=== PATIENT | female | born 1965 | race Caucasian/White ===

== ENCOUNTER → 2016-03-18 | Outpatient (CLI) | payer OTHER ==
--- NOTE | 2016-03-19 11:19 | ECHOF ---
Referral Reason:heart murmur R01.1 MEASUREMENTS -------- HEIGHT: 162.6 cm WEIGHT: 61.2 kg BP: IVSd: 1.1 cm (0.6 - 1.1) LVIDd: 4.7 cm (3.9 - 5.3) LVPWd: 0.9 cm (0.6 - 1.1) IVSs: 1.4 cm LVIDs: 2.6 cm LVPWs: 1.5 cm Ao Diam: 2.5 cm (2.0 - 3.7) AV Cusp: 1.8 cm (1.5 - 2.6) LA Diam: 2.3 cm (2.7 - 3.8) MV EXCURSION: 10.998 mm (> 18.000) MV EF SLOPE: 103 mm/s (70 - 150) EPSS: 0.6 cm MV E Avery: 1.15 m/s MV DecT: 166 ms MV A Avery: 1.01 m/s MV E/A Ratio: 1.13 RAP: 5.00 mmHg RVSP: 33.21 mmHg FINDINGS -------- Sinus rhythm. This was a technically good study. Left ventricular wall thickness is normal. Overall left ventricular systolic function is normal with, an EF between 55 - 60 %. The right ventricle is normal in size and function. The left atrium is normal in size. The right atrium is normal in size. The aortic valve is trileaflet, and appears structurally normal. No aortic stenosis or regurgitation. There is trace mitral regurgitation. Trace tricuspid regurgitation present. The right ventricular systolic pressure, as measured by Doppler, is 33.21mmHg. Pulmonic valve appears structurally normal. The aortic root, ascending aorta and aortic arch are normal. The pericardium is normal. CONCLUSIONS -------- 1. Sinus rhythm. 2. Trace tricuspid regurgitation present. 3. The right ventricular systolic pressure, as measured by Doppler, is 33.21mmHg. 4. Pulmonic valve appears structurally normal. 5. The aortic root, ascending aorta and aortic arch are normal. 6. The pericardium is normal. 7. This was a technically good study. 8. Left ventricular wall thickness is normal. 9. Overall left ventricular systolic function is normal with, an EF between 55 - 60 %. 10. The right ventricle is normal in size and function. 11. The left atrium is normal in size. 12. The right atrium is normal in size. 13. The aortic valve is trileaflet, and appears structurally normal. No aortic stenosis or regurgitation. 14. There is trace mitral regurgitation. [employer] WORKER: Mone Ordonez RDCS
== END | disposition home or self-care (01) ==
LOC: RADECHMAIN 14:41
PROVIDERS: ATTEND Family Medicine
DX: R01.1 Cardiac murmur, unspecified (principal)
CPT/HCPCS: 93306

== ENCOUNTER 2017-02-04 09:29 | Day surgery (SDC) | payer OTHER ==
[2017-02-03 08:27] VITALS: BMI 22.3
[~2017-02-04 09:29] MED LIST: DEXAMETHASONE SOD PHOSPHATE 10 MG/ML 1 ML VIAL IV ONE; HYDROmorphone 0.5 MG/0.5 ML SYRINGE IVP PRN; LACTATED RINGERS 1,000 ML IV SCH; LIDOCAINE 1% 20 ML VIAL (10MG/ML) FOR IV START INTRADERMA PRN; MIDAZOLAM 2 MG/2 ML VIAL IV PRN; ONDANSETRON 4 MG/2 ML VIAL IVP ONE; SCOPOLAMINE 1.5MG/72HR PATCH TRANSDERM ONE; TETRACAINE 0.5% OPHTH (PF) DROPS 4 ML BTL OP ONE; TIMOLOL 0.5% OPHTH SOLN (PF) 0.2 ML DROPERETTE OP ONE
[2017-02-04] MEDS: CYCLOPENTOLATE 1% OPHTH SOLN 2 ML BTL OP ONE ×3 (10:44→11:02)
[2017-02-04 10:46] VITALS: RESP 18; TEMP 97.8
[2017-02-04] MEDS: PHENYLEPHRINE 2.5% OPHTH DRP 2ML OP NR ×3 (10:48→11:06)
[2017-02-04] MEDS ORDERED: fentaNYL (PF) 50 MCG/ML 2 ML AMP ONE (11:38)
[2017-02-04] MEDS ORDERED: MIDAZOLAM 2 MG/2 ML VIAL ONE (11:38)
[2017-02-04] MEDS ORDERED: BALANCED SALT IRRIG SOLN COMB2 15 ML IRRIG.SOLN IRRIGATION ONE (11:42)
[2017-02-04] MEDS ORDERED: LIDOCAINE 1% (PF) 10MG/ML VIAL INTRAARTIC ONE (11:42)
[2017-02-04] MEDS: MOXIFLOXACIN HCL 0.5% DROPS 3 ML BTL OP ONE ×2 (11:42→11:47)
[2017-02-04] MEDS ORDERED: EPINEPHrine (PF) 0.3 ML in BALANCED SALT IRRIG SOLN COMB2 500 ML IRRIGATION ONE (11:47)
[2017-02-04] MEDS ORDERED: HYALURONATE SODIUM INTRAOCULAR 1 EACH SYRINGE (12MG/ML) INTRAOCULA ONE (11:52)
[2017-02-04] MEDS ORDERED: FLUORESCEIN STRIPS 1 MG STRIP RIGHT EYE ONE (12:10)
--- NOTE | 2017-02-04 12:16 | P.OP ---
Date of Procedure: 02/04/17 Preoperative Diagnosis: pseudophakic lens dislocation Postoperative Diagnosis: same Procedure(s) Performed: IOL exchange Implants: PCB00 33.00 Anesthesia: MAC Surgeon: Carlos Ochoa Estimated Blood Loss (ml): 0 Pathology: none sent Condition: stable Disposition: same day Indications for Procedure: profound myopia/anisemetropia Operative Findings: No complications
[2017-02-04 12:41] VITALS: BP 113/66; PULSE 45
--- NOTE | 2017-02-05 06:11 | OP ---
OPERATIVE REPORT DATE OF SURGERY: February 04, 2017. PROCEDURE: Intra-ocular lens exchange of the right eye. PREOPERATIVE DIAGNOSES: Malpositioned intra-ocular lens, visual discomfort, and primary open-angle glaucoma mild stage. POSTOPERATIVE DIAGNOSES: Malpositioned intra-ocular lens, visual discomfort, and primary open-angle glaucoma mild stage. SURGEONS: Dr. Carlos Ochoa. ANESTHESIA: Topical. ESTIMATED BLOOD LOSS: None. SPECIMEN: Taken none. NARRATIVE: After obtaining the appropriate consent, the patient was brought to the operating room. There she was placed under cardiac monitoring and prepped and draped in the usual sterile manner. Approximately 1 month prior to today's surgical procedure, the patient underwent cataract and uncomplicated cataract extraction, eye stent implantation and implantation of a crystal lens. Apparently due to the size of this patient's eye, which was only 19.11 mm, the intra-ocular lens did not maintain its proper confirmation within the capsular bag of the eye and created a situation where she was roughly 3/4 diopters myopic. Additionally because the lens was not in the proper confirmation it would not have led to any ability for accommodation in the end even undergoing refractive surgery. Therefore, in an attempt to try to reposition the lens, the patient was brought to surgery, possibly expecting to exchange the lens if the current lens would not maintain proper confirmation in the eye. At the 11 o'clock position, identifying the original paracentesis, this opening was opened easily using a 1.1 mm stab blade. 1% lidocaine MPF 50 50 mix with balanced salt solution was injected into the anterior chamber. This was followed by an attempt using a Sinskey hook to probe pulse the optic of the intra-ocular lens deeper within the bag of this eye. However, every time the pressure was released, the lens reverted from its appropriate confirmation to an inverted confirmation. There was no evidence of any (Z) confirmation to this lens. However, at this point being frustrated in an attempt to even make this lens behave, it was decided best to go ahead and remove and resort to a standard intra-ocular lens. Therefore, viscoelastic was then instilled into the anterior chamber and at the 9 o'clock position, a 2.5 mm keratome was used to carefully open the existing temporal incision which had not well healed at this point. The intra- ocular lens was easily disinserted from the capsular bag using additional viscoelastic and manipulation using a Sinskey hook. Both haptics were brought into the anterior chamber and using a cool and Makool lens removal system, the lens was and divided in half and brought out through the temporal incision in 2 parts. Once this was accomplished, an JOVAN PCB 0 0 33.0 diopter posterior chamber intraocular lens was then inserted back into the capsular bag without difficulty. The remaining viscoelastic was then removed from in and around the intra-ocular lens in the capsular bag. The eye was brought to normal intraocular pressure through the paracentesis port and watertight integrity was ensured using ReSure tissue glue. Confirmation of the water tight integrity after placement of the glue on the incisions was confirmed using a fluorescein strip. The patient then received 2 drops of 0.5% timolol followed by 2 drops of moxifloxacin and she was lightly patched and shielded in the usual manner. There were no complications from the procedure. She tolerated the procedure well and was returned to outpatient recovery in good condition. MMTALISHA / VIRGILN: [id number] /
== END 2017-02-04 13:06 | disposition home or self-care (01) ==
LOC: OR 09:29
PROVIDERS: ATTEND Ophthalmology
DX: T85.22XA Displacement of intraocular lens, initial encounter (principal); H40.1111 Primary open-angle glaucoma, right eye, mild stage; H40.1122 Primary open-angle glaucoma, left eye, moderate stage; H40.52X2 Glaucoma secondary to other eye disorders, left eye, moderate stage; H40.033 Anatomical narrow angle, bilateral; H52.4 Presbyopia; H00.026 Hordeolum internum left eye, unspecified eyelid; H00.023 Hordeolum internum right eye, unspecified eyelid; H25.12 Age-related nuclear cataract, left eye; I10 Essential (primary) hypertension; E07.9 Disorder of thyroid, unspecified; Z79.899 Other long term (current) drug therapy; Y77.2 Prosthetic and other implants, materials and accessory ophthalmic devices associated with adverse incidents
CPT/HCPCS: 81025; 66986; C1780; J2250; J1100; J2405; J0171; J3010; J2001

== ENCOUNTER 2017-12-02 09:37 | Day surgery (SDC) | payer BC, OTHER ==
[2017-11-30 08:22] VITALS: BMI 22.3
[~2017-12-02 09:37] MED LIST changes: -DEXAMETHASONE SOD PHOSPHATE 10 MG/ML 1 ML VIAL IV ONE; -HYDROmorphone 0.5 MG/0.5 ML SYRINGE IVP PRN; -LACTATED RINGERS 1,000 ML IV SCH; -LIDOCAINE 1% 20 ML VIAL (10MG/ML) FOR IV START INTRADERMA PRN; -MIDAZOLAM 2 MG/2 ML VIAL IV PRN; +MOXIFLOXACIN HCL 0.5% DROPS 3 ML BTL OP ONE; -ONDANSETRON 4 MG/2 ML VIAL IVP ONE; -SCOPOLAMINE 1.5MG/72HR PATCH TRANSDERM ONE; +TIMOLOL 0.5% OPHTH DROPS 5 ML BTL OP ONE; -TIMOLOL 0.5% OPHTH SOLN (PF) 0.2 ML DROPERETTE OP ONE
[2017-12-02] MEDS: CYCLOPENTOLATE 1% OPHTH SOLN 2 ML BTL OP ONE ×3 (11:35→11:55)
[2017-12-02] MEDS: PHENYLEPHRINE 2.5% OPHTH DRP 2ML OP NR ×3 (11:39→11:59)
[2017-12-02 11:41] VITALS: TEMP 97.8
[2017-12-02] MEDS ORDERED: LIDOCAINE 1% 20 ML VIAL (10MG/ML) FOR IV START INTRADERMA ONE (11:54)
[2017-12-02] MEDS ORDERED: LACTATED RINGERS 1,000 ML IV ONE (11:54)
[2017-12-02] MEDS ORDERED: BALANCED SALT IRRIG SOLN COMB2 15 ML IRRIG.SOLN IRRIGATION ONE (12:11)
[2017-12-02] MEDS ORDERED: LIDOCAINE 1% (PF) 10MG/ML VIAL SQ ONE (12:12)
[2017-12-02] MEDS ORDERED: DUOVISC KIT (GREEN BOX) INTRAOCULA ONE (12:12)
[2017-12-02] MEDS ORDERED: fentaNYL (PF) 50 MCG/ML 2 ML AMP ONE (12:13)
[2017-12-02] MEDS ORDERED: EPINEPHrine (PF) 0.3 ML in BALANCED SALT IRRIG SOLN COMB2 500 ML IRRIGATION ONE (12:16)
--- NOTE | 2017-12-02 12:44 | P.OP ---
Date of Procedure: 12/02/17 Preoperative Diagnosis: NS & CS & POAG Postoperative Diagnosis: same Procedure(s) Performed: PIOL, OS & iStent imlpant Implants: PCB00 31.50 GTS 100L Anesthesia: MAC Surgeon: Carlos Ochoa Estimated Blood Loss (ml): 0 Pathology: none sent Condition: stable Disposition: same day Indications for Procedure: blurry vision and POAG moderate Operative Findings: No complications
[2017-12-02 12:50] VITALS: PULSE 55; RESP 18
[2017-12-02 13:02] VITALS: BP 147/76
--- NOTE | 2017-12-02 18:33 | OP ---
OPERATIVE REPORT DATE OF SURGERY: December 02, 2017. PROCEDURE PERFORMED: Phacoemulsification of cataract and intraocular lens implant of the left eye with eye stent implantation. PREOPERATIVE DIAGNOSES: Nuclear sclerosis, cortical sclerosis and primary open-angle glaucoma, moderate stage. POSTOPERATIVE DIAGNOSES: Nuclear sclerosis, cortical sclerosis and primary open-angle glaucoma, moderate stage. SURGEON: Dr. Carlos Ochoa. ANESTHESIA: Topical. ESTIMATED BLOOD LOSS: None. SPECIMEN: Taken none. NARRATIVE: After obtaining the appropriate consent, the patient was brought to the operating room. There she was placed under cardiac monitoring, prepped and draped in the usual sterile manner. She was approached from her left temporal side and at the 5 o'clock position, an MVR blade was used to create a paracentesis port. Through this opening 1% Xylocaine MPF 50 50 mix with balanced salt solution was injected into the anterior chamber. This was followed by stabilization of the anterior chamber with Viscoat. A small amount of the Viscoat material was also placed on the patient's cornea. At the 3 o'clock position, a 2.5 mm keratome was used to create a self-sealing corneal flap incision in a Langerman's fashion. The patient was then asked to rotate her head approximately 45 degrees to her right and maintaining gaze in that general direction. A gonio prism was placed on the patient's cornea and the trabecular meshwork was easily identified. A Glaukos TTS 100L eye stent was then placed across the anterior chamber and the stent was imbedded within the nasal trabecular meshwork without difficulty. A small amount of blood as expected refluxed through the opening of the implant. The patient was then returned to the normal supine position and a cystotome was introduced to begin a continuous tear capsulorrhexis which was completed using the Utrata forceps. Hydrodissection and hydrodelineation of the lens was accomplished with balanced salt solution. Phacoemulsification of the lens utilizing phaco chop was accomplished in 6/10 of 1 second at 8 percent power. Once the lens was removed, a small amount of the Xylocaine MPF was again instilled into the anterior chamber. This was followed by removal of the remaining cortex under irrigation and aspiration along with careful polishing of the posterior capsule in capsule vacuum mode. A small amount of Provisc was then used to stabilize the capsular bag and an JOVAN PCB00 31.5 diopter posterior chamber intraocular lens was then placed into the capsular bag without difficulty. The remaining viscoelastic was removed from in and around the intra-ocular lens as well as the anterior chamber. The eye was then brought to normal intraocular pressures through the paracentesis port with balanced salt solution. The eye was confirmed watertight. She then received 2 drops of 0.5% timolol followed by 2 drops of moxifloxacin, was then lightly patched and shielded in the usual manner. There were no complications from the procedure. She tolerated the procedure well, was returned to outpatient recovery in good condition. JUAN C / VIRGILN: [id number] /
== END 2017-12-02 13:16 | disposition home or self-care (01) ==
LOC: OR 09:37
PROVIDERS: ATTEND Ophthalmology
DX: H25.12 Age-related nuclear cataract, left eye (principal); H40.1122 Primary open-angle glaucoma, left eye, moderate stage; H00.026 Hordeolum internum left eye, unspecified eyelid; H40.1111 Primary open-angle glaucoma, right eye, mild stage; H40.033 Anatomical narrow angle, bilateral; H40.52X2 Glaucoma secondary to other eye disorders, left eye, moderate stage; H00.023 Hordeolum internum right eye, unspecified eyelid; H52.4 Presbyopia; Z96.1 Presence of intraocular lens; I10 Essential (primary) hypertension; E07.9 Disorder of thyroid, unspecified; Z79.890 Hormone replacement therapy; Z79.899 Other long term (current) drug therapy
CPT/HCPCS: 66984; 66183; 81025; C1780; C1783; J0171; J3010; J2001

== ENCOUNTER → 2018-03-05 | Outpatient (CLI) | payer BC ==
--- NOTE | 2018-03-05 10:05 | US ---
EXAMINATION TYPE: US liver DATE OF EXAM: 03/05/2018 COMPARISON: NONE CLINICAL HISTORY: R10.811 RUQ Abdominal Tenderness. abd tenderness when doctor pressed in RUQ EXAM MEASUREMENTS: Liver Length: 14.6 cm Gallbladder Wall: 0.2 cm CBD: 0.5 cm Right Kidney: 9.1 x 4.1 x 4.2 cm Pancreas: wnl Liver: wnl Gallbladder: wnl Evidence for sonographic Mallory's sign: no CBD: wnl Right Kidney: wnl IMPRESSION: 1. No suspicious ultrasound abnormality right upper quadrant ultrasound
== END | disposition home or self-care (01) ==
LOC: RADUSWWP 06:55
PROVIDERS: ATTEND Family Medicine
DX: R10.811 Right upper quadrant abdominal tenderness (principal)
CPT/HCPCS: 76705

== ENCOUNTER 2019-09-28 06:48 | Day surgery (SDC) | payer OTHER ==
[2019-09-26 14:37] VITALS: BMI 25.2
[~2019-09-28 06:48] MED LIST changes: +ATROPINE OPHTH SOLN 1% 5ML BTL OPHTHALMIC ONE; +LACTATED RINGERS 1,000 ML IV SCH; -TETRACAINE 0.5% OPHTH (PF) DROPS 4 ML BTL OP ONE
[2019-09-28] MEDS: PILOCARPINE 2% OPHTH DROPS 15 ML BTL OP ONE ×3 (07:38→07:47)
[2019-09-28 07:40] VITALS: TEMP 97.9
[2019-09-28] MEDS: GLYCERIN OPHTHALMIC ONE ×2 (07:49→07:58)
[2019-09-28] MEDS: TOBRA-DEXAMET 0.3-0.1% OPHTH DROPS 2.5 ML BTL OPHTHALMIC NR ×2 (08:04→08:07)
[2019-09-28] MEDS ORDERED: MIDAZOLAM 2 MG/2 ML VIAL ONE (08:14)
[2019-09-28] MEDS ORDERED: fentaNYL (PF) 50 MCG/ML 2 ML AMP ONE (08:14)
[2019-09-28] MEDS ORDERED: BALANCED SALT IRRIG SOLN COMB2 15 ML IRRIG.SOLN INTRAOCULA ONE (08:58)
[2019-09-28] MEDS ORDERED: TRYPAN BLUE 0.06% SYRINGE 0.5 ML SYRINGE INTRAOCULA ONE (08:58)
[2019-09-28] MEDS ORDERED: HYALURONATE SODIUM INTRAOCULAR 1 EACH SYRINGE (12MG/ML) INTRAOCULA ONE (08:59)
[2019-09-28] MEDS ORDERED: LIDOCAINE 1% (PF) 10 MG/ML (30 ML SDV) SQ ONE (09:00)
[2019-09-28] MEDS ORDERED: BALANCED SALT IRRIG SOLN COMB2 500 ML INTRAOCULA ONE (09:03)
[2019-09-28] MEDS ORDERED: BALANCED SALT IRRIG SOLN COMB2 500 ML IRRIGATION ONE (09:03)
--- NOTE | 2019-09-28 11:18 | P.OP ---
Date of Procedure: 09/28/19 Preoperative Diagnosis: PBK Postoperative Diagnosis: same Procedure(s) Performed: DMEK Implants: none Anesthesia: MAC Surgeon: Carlos Ochoa Estimated Blood Loss (ml): 0 Pathology: none sent Condition: stable Disposition: same day Indications for Procedure: persistent corneal edema Operative Findings: no complications
[2019-09-28 11:31] VITALS: RESP 16
[2019-09-28 12:47] VITALS: BP 147/85
[2019-09-28 12:48] VITALS: PULSE 46
--- NOTE | 2019-09-29 03:09 | OP ---
OPERATIVE REPORT DATE OF SURGERY: 09/28/2019. PROCEDURE: Descemet's membrane endothelial keratoplasty of the right eye with superficial epithelial debridement of the cornea. PREOPERATIVE DIAGNOSIS: Pseudophakic bullous keratopathy. POSTOPERATIVE DIAGNOSES: Pseudophakic bullous keratopathy. SURGEON: Dr. Carlos Ochoa. ANESTHESIA: MAC. ESTIMATED BLOOD LOSS: None. SPECIMEN TAKEN: None. NARRATIVE: After obtaining the appropriate consent, the patient was brought to the operating room. She was placed under cardiac monitoring, prepped and draped in the usual sterile manner. She was approached from her right temporal side and at the axes of 45, 135, 225 and 315, an MVR blade was used to create a paracentesis port. Through this opening 1% Xylocaine MPF 50:50 mix with balanced salt solution was injected into the anterior chamber. This was followed by Trypan blue which was left in the anterior chamber for 3 minutes. This was then irrigated away and replaced with Amvisc. At the 9 o'clock position, a 2.5 mm keratome was used to create a self-sealing corneal flap incision. The wound size was confirmed adequate for a Mckeon tube. Through the paracenteses incisions, a Sandy hook was used to score the endothelium at 8 mm. This was confirmed using an 8 mm trephination blade. Once the perimeter was scored then using a Descemet's membrane stripping tool, the entire central portion of the failed endothelium was removed in one piece. The viscoelastic was then removed under irrigation and aspiration to ensure no remaining viscoelastic was in the anterior chamber. Attention was then directed to the preparation of the donor Descemet's tissue. This tissue was identified as [id number]. This was already prepared and placed in a Mckeon tube for insertion. A syringe with balanced salt solution was attached to the open end. The tip which had been capped was opened and the tissue was brought to the patient's eye. The donor tissue was injected into the anterior chamber and a 10-0 nylon was used to secure the temporal incision. The donor tissue was then manipulated through various methods of tapping on the patient's cornea to orient the tissue into the proper anterior-posterior direction and centrally within the patient's eye. There were some difficulties appreciated during the manipulations in that the donor tissue tended to not respond to the normal fluid waves and often remained a flattened taco-like shape while in the eye. On a fortuitous move, the tissue laid flat with the stromal side in the proper orientation. At this point, a small air bubble was placed beneath the tissue and this was buoyed against the underside of the patient's cornea. Once placement was confirmed to be reasonable, sulfur hexafluoride SF6 was injected into the anterior chamber and the eye was brought to approximately 35 mmHg. This air bubble remained in the eye for approximately 25 minutes. During this period of time, a corneal debridement had to take place due to the previous bullous changes that were appreciated and which were consistently making the positioning of the donor tissue more difficult. The epithelium easily lifted with simply a dry Weck-Kimberly sponge and a #4 Jeweler's was used to remove the remaining epithelial debris. When sufficient time had passed, a portion of the SF6 was removed from the anterior chamber and replaced with balanced salt solution and at the time of discharge from the operating room, the amount of gas in the anterior chamber was approximately 40%. The patient received 2 drops of moxifloxacin, 2 drops of 0.5% timolol and the eye was protected with a Jackson shield, and she was transported to the recovery area where she remained in the supine position for an additional hour. After that period of time had passed, the patient was asked to sit upright and examined at the slit lamp. The corneal tissue remained in its proper orientation against the patient's own stroma and 2 drops of 1% atropine were applied to the patient's eye. The protective shield was then placed over the patient's eye and she was discharged from the postoperative area in no acute distress. MMBHAVNAL / VIRGILN: [id number] / DAVID
[2019-09-29] MEDS ORDERED: TETRACAINE 0.5% OPHTH (PF) DROPS 4 ML BTL OP ONE (05:00)
== END 2019-09-28 13:44 | disposition home or self-care (01) ==
LOC: OR 06:48
PROVIDERS: ATTEND Ophthalmology
DX: H59.0 Disorders of the eye following cataract surgery (principal); H18.51 Endothelial corneal dystrophy; H40.1122 Primary open-angle glaucoma, left eye, moderate stage; H40.1111 Primary open-angle glaucoma, right eye, mild stage; H00.026 Hordeolum internum left eye, unspecified eyelid; H52.4 Presbyopia; M35.01 Sjogren syndrome with keratoconjunctivitis; I10 Essential (primary) hypertension; E07.9 Disorder of thyroid, unspecified; Z80.0 Family history of malignant neoplasm of digestive organs; Z83.3 Family history of diabetes mellitus; Z82.49 Family history of ischemic heart disease and other diseases of the circulatory system; Z82.3 Family history of stroke; Z84.1 Family history of disorders of kidney and ureter; Z98.41 Cataract extraction status, right eye; Z98.42 Cataract extraction status, left eye; Z98.51 Tubal ligation status; E78.5 Hyperlipidemia, unspecified; Z79.890 Hormone replacement therapy; Z79.899 Other long term (current) drug therapy
CPT/HCPCS: 87070; 87205; 87075; 65756; V2785; J2250; J2001; J3010

== ENCOUNTER → 2020-12-05 | Outpatient (CLI) | payer OTHER ==
--- NOTE | 2020-12-05 15:56 | BD ---
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 History of Fracture in Adulthood: YES Secondary Osteoporosis: 1. Type 1 Diabetes: NO 2. Hyperthyroidism: NO 3. Menopause before 45: NO 4. Malnutrition: NO 5. Chronic liver disease: NO Rheumatoid Arthritis: NO Current Tobacco Use: NO RISK FACTORS HISTORY OF: Surgery to Spine/Hip(right/left)/Wrist (right/left): ASHLI HIP REPLACEMNT When: 2019 Family History of Osteoporosis: NO Active: YES Diet low in dairy products/other sources of calcium: NO Postmenopausal woman: AGE 53 Take estrogen and/or progesterone medications: NO Lost more than 2 inches in height since high school: NO MEDICATIONS: Thyroid Medications: YES Which medication: SYNTHROID How Lon-8 YEARS Additional Medications: SYNTHROID,ATORVASTATIN, LISINOPRIL Additional History: EXAM MEASUREMENTS: Bone mineral densitometry was performed using the [employer] System. Bone mineral density as measured about the Lumbar spine is: ----- L1-L4(G/cm2): 1.162 T Score Values are as follows: ----- L2: -0.2 ----- L3: -0.5 ----- L4: -1.3 ----- L1-L4: -0.2 BASELINE Bone mineral density about the L Wrist (g/cm2): 0.649 T Score values are as follows: -----Dist. R+U: -0.9 -----Prox. R+U: 0.1 -----Radius total: -0.4 BASELINE IMPRESSION: No evidence for osteoporosis or osteopenia. NOTE: T-SCORE=SD OF THE YOUNG ADULT MEAN.
--- NOTE | 2020-12-10 10:11 | MM ---
Reason for exam: screening (asymptomatic). Last mammogram was performed 4 years and 9 months ago. Physical Findings: A clinical breast exam by your physician is recommended on an annual basis and results should be correlated with mammographic findings. MG 3D Screening Mammo W/Cad Bilateral CC and MLO view(s) were taken. Prior study comparison: February 22, 2016, left breast MG diagnostic mammo LT w CAD. The breast tissue is heterogeneously dense. This may lower the sensitivity of mammography. Benign vascular calcifications. No significant changes when compared with prior studies. ASSESSMENT: Benign, BI-RAD 2 RECOMMENDATION: Routine screening mammogram of both breasts in 1 year.
== END | disposition home or self-care (01) ==
LOC: RADMAMWWP 13:58
PROVIDERS: ATTEND Obstetrics & Gynecology
DX: Z12.31 Encounter for screening mammogram for malignant neoplasm of breast (principal); M85.88 Other specified disorders of bone density and structure, other site
CPT/HCPCS: 77063; 77067; 77080

== ENCOUNTER → 2022-07-01 | Outpatient (CLI) | payer OTHER ==
--- NOTE | 2022-07-02 08:21 | MM ---
Reason for Exam: Screening (asymptomatic). Last mammogram was performed 1 year(s) and 7 month(s) ago. Patient History: Menarche at age 11. First Full-Term at age 14. Postmenopausal. Risk Values: Adenike 5 year model risk: 1.0%. NCI Lifetime model risk: 5.6%. Prior Study Comparison: 07/21/2007 Bilateral Diagnostic Mammogram, [facility]. 02/22/2016 Left Diagnostic Mammogram, [facility]. 12/05/2020 Bilateral Screening Mammogram, [facility]. Tissue Density: The breast tissue is heterogeneously dense. This may lower the sensitivity of mammography. Findings: Analyzed By CAD. There are benign-appearing vascular calcifications bilaterally redemonstrated. There is no suspicious new group of microcalcifications or new suspicious mass in either breast. Overall Assessment: Benign, BI-RAD 2 Management: Screening Mammogram of both breasts in 1 year. Some advise bilateral breast ultrasound surveillance in patients with background dense tissue. A clinical breast exam by your physician is recommended on an annual basis and results should be correlated with mammographic findings. Electronically signed and approved by: Florian Pinto M.D.
== END | disposition home or self-care (01) ==
LOC: RADMAMWWP 13:18
PROVIDERS: ATTEND Family Medicine
DX: Z12.31 Encounter for screening mammogram for malignant neoplasm of breast (principal); Z78.0 Asymptomatic menopausal state
CPT/HCPCS: 77063; 77067

== ENCOUNTER → 2022-08-21 | Outpatient (CLI) | payer OTHER ==
--- NOTE | 2022-08-22 14:05 | MR ---
EXAMINATION TYPE: MR thoracic spine wo con DATE OF EXAM: 08/21/2022 4:35 PM COMPARISON: No priors. INDICATION: Patient age:Female; 56 years old; Reason for study: R10.9 R07.89 M79.2. Mid back pain for 3 years. TECHNIQUE: Multi planar, multi sequence imaging was performed utilizing: T1-weighted, short-tau inver lu recovery and T2-weighted of the thoracic spine. The patient was not given Gadolinium. IV Contrast: None FINDINGS: The thoracic vertebral bodies have preserved heights and mildly increased kyphosis thoracic spine. Th e osseous structure have heterogenous degenerative changes to the spine with probable T7 vertebral ab dy hemangioma versus focal fat . Disc degeneration changes are worse at T7-T8, T8-T9 and T12-L1 with Modic endplate changes and osteophytes and disc space narrowing. Thoracic spinal cord appears unremar kable. No abnormal bony edema on inversion recovery sequences. Scattered disc desiccation is present throughout the spine. T2-T3 right foraminal osteophytes with moderate neural foraminal stenosis. The left neural foramen is patent. Spinal canal is mildly narrowed. Osteophytes at T7-T8 and T8-T9 without significant spinal canal stenosis.. The remainder of the level s demonstrate no significant spinal canal or neural foraminal stenosis. IMPRESSION: Moderate disc degeneration changes worse at T7-T8 and T8-T9 and T12-L1. There is moderate neural fora cassi stenosis at T2-T3 on the right otherwise the remainder of the neural foramen and the spinal can al are patent.
== END | disposition home or self-care (01) ==
LOC: RADMRIMAIN 15:23
PROVIDERS: ATTEND Family Medicine
DX: M51.34 Other intervertebral disc degeneration, thoracic region (principal); M48.04 Spinal stenosis, thoracic region; M79.2 Neuralgia and neuritis, unspecified; R10.9 Unspecified abdominal pain; R07.89 Other chest pain
CPT/HCPCS: 72146

== ENCOUNTER → 2023-08-27 | Outpatient (CLI) | payer OTHER ==
--- NOTE | 2023-08-31 12:50 | MM ---
Reason for Exam: Screening (asymptomatic). Last mammogram was performed 1 year(s) and 2 month(s) ago. Patient History: Menarche at age 11. First Full-Term at age 14. Postmenopausal. Risk Values: Adenike 5 year model risk: 1.0%. NCI Lifetime model risk: 5.5%. Prior Study Comparison: 02/22/2016 Left Diagnostic Mammogram, [facility]. 12/05/2020 Bilateral Screening Mammogram, [facility]. 07/01/2022 Bilateral MG 3D screening mammo w/cad, [facility]. Tissue Density: There are scattered areas of fibroglandular density. Findings: Analyzed By CAD. Right breast: There is no suspicious group of microcalcifications or new suspicious mass. Left breast: There is no suspicious group of microcalcifications or new suspicious mass. Overall Assessment: Negative, BI-RAD 1 Management: Screening Mammogram of both breasts in [address] [facility] will attempt to contact patient to return for supplemental views and ultrasound if indicated. Patient should continue monthly self-breast exams. A clinical breast exam by your physician is recommended on an annual basis. This exam should not preclude additional follow-up of suspicious palpable abnormalities. Note on Adenike scores and lifetime risk: 1. A Adenike score greater than 3% is considered moderate risk. If this is the case, consider specialist referral to assess eligibility for a risk reducing agent. 2. If overall lifetime risk for the development of breast cancer is 20% or higher, the patient may qualify for future screening with alternating mammogram and breast MRI. Electronically signed and approved by: Quriino Shaffer DO
== END | disposition home or self-care (01) ==
LOC: RADMAMWWP 13:24
PROVIDERS: ATTEND Internal Medicine Geriatric Medicine
DX: Z12.31 Encounter for screening mammogram for malignant neoplasm of breast (principal); Z78.0 Asymptomatic menopausal state
CPT/HCPCS: 77063; 77067

== ENCOUNTER → 2024-07-22 | Outpatient (CLI) | payer OTHER ==
--- NOTE | 2024-07-22 13:14 | USB ---
Reason for Exam: Clinical finding. Patient History: Menarche at age 11. First Full-Term at age 14. Postmenopausal. Risk Values: Adenike 5 year model risk: 1.0%. NCI Lifetime model risk: 5.3%. Technique: Method: Targeted. Prior Study Comparison: 12/05/2020 Bilateral Screening Mammogram, [facility]. 07/01/2022 Bilateral MG 3D screening mammo w/cad, [facility]. 08/27/2023 Bilateral MG 3D screening mammo w/cad, [facility]. Findings: The area of palpable concern of the left breast and the axilla of the left breast were scanned. Targeted ultrasound palpable abnormality left axilla. No solid or cystic masses are identified. Benign-appearing left axillary lymph node is present. Overall Assessment: Benign, BI-RAD 2 Management: Screening Mammogram of both breasts in 1 year. Manage palpable clinically. A clinical breast exam by your physician is recommended on an annual basis and results should be correlated with mammographic findings. This exam should not preclude additional follow-up of suspicious palpable abnormalities. Results were given to the patient verbally at the time of exam. [facility], , 07/22/2024 1:11 PM. Electronically signed and approved by: Florian Pinto M.D.
--- NOTE | 2024-07-25 11:38 | MM ---
Reason for Exam: Clinical finding. Last screening mammogram was performed 11 month(s) ago. Patient History: Menarche at age 11. First Full-Term at age 14. Postmenopausal. Risk Values: Adenike 5 year model risk: 1.0%. NCI Lifetime model risk: 5.3%. Prior Study Comparison: 02/22/2016 Left Diagnostic Mammogram, [facility]. 02/22/2016 Left Diagnostic Ultrasound, [facility]. 12/05/2020 Bilateral Screening Mammogram, [facility]. 07/01/2022 Bilateral MG 3D screening mammo w/cad, [facility]. 08/27/2023 Bilateral MG 3D screening mammo w/cad, [facility]. Tissue Density: There are scattered areas of fibroglandular density. Findings: Analyzed By CAD. Benign-appearing vascular calcifications bilaterally are redemonstrated. No distortion in either breast. No suspicious new mass. Overall Assessment: Incomplete: need additional imaging evaluation, BI-RAD 0 Management: Diagnostic Breast Ultrasound of the left breast. Targeted ultrasound left axilla due to palpable abnormality. Results were given to the patient verbally at the time of exam. Patient should continue monthly self-breast exams. A clinical breast exam by your physician is recommended on an annual basis. This exam should not preclude additional follow-up of suspicious palpable abnormalities. Note on Adenike scores and lifetime risk: 1. A Adenike score greater than 3% is considered moderate risk. If this is the case, consider specialist referral to assess eligibility for a risk reducing agent. 2. If overall lifetime risk for the development of breast cancer is 20% or higher, the patient may qualify for future screening with alternating mammogram and breast MRI. [facility], , 07/22/2024 1:02 PM. Electronically signed and approved by: Florian Pinto M.D.
== END | disposition home or self-care (01) ==
LOC: RADMAMWWP 12:32
PROVIDERS: ATTEND Internal Medicine Geriatric Medicine
DX: N63.32 Unspecified lump in axillary tail of the left breast (principal); R92.323 Mammographic fibroglandular density, bilateral breasts; R92.1 Mammographic calcification found on diagnostic imaging of breast; Z78.0 Asymptomatic menopausal state
CPT/HCPCS: 77062; 77066